=== PATIENT | female | born 1970 | race Caucasian/White ===

== ENCOUNTER 2017-03-16 19:50 | Inpatient (IN) | payer OTHER ==
[~2017-03-16] VITALS: Ht 161.3 cm; Wt 103.2 kg
--- NOTE | ~2017-03-16 | HP ---
Unit #: [id number] #: [id number] Patient: THIAGO LUJAN [id number] [address] [place], [place] [address] [id number] I MR#: [id number] NAME: THIAGO LUJAN ROOM: [facility] Age: 46 Sex: F Admission Date: 03/17/2017 : 1970 Attending Physician: Cristian Dorado M.D. Primary Care Physician: Tyrone Merritt M.D. HISTORY AND PHYSICAL HISTORY OF PRESENT ILLNESS The patient is a 46-year-old white female with a history of osteoarthritis and asthma and became ill about a week ago. She was seen by her primary care physician and started on amoxicillin. She became worse and was switched to doxycycline, but then had persistent nausea and vomiting with minimal amount of diarrhea. She arrived in the emergency room and here she was hypotensive and febrile. She had a left lower lobe infiltrate. CBC was normal. Labs were fairly unremarkable otherwise, except for a slightly low sodium at 134. The patient is admitted for IV antibiotic therapy for failure to respond to outpatient oral antibiotic therapy for left lower lobe pneumonia. PAST MEDICAL HISTORY 1. Seasonal allergies. 2. Asthma. 3. Osteoarthritis. PAST SURGICAL HISTORY times two. SOCIAL HISTORY Works in a factory. Nonsmoker. Rare alcohol use. No street drug use. FAMILY HISTORY Noncontributory. ALLERGIES No known drug allergies. PREADMISSION MEDICATIONS 1. Doxycycline 100 mg b.i.d. 2. Singulair 10 mg daily. 3. Promethazine 25 mg p.o. q.i.d. p.r.n. 4. Flonase nasal spray, 1 spray both nostrils b.i.d. 5. Meloxicam 15 mg p.o. daily. PHYSICAL EXAMINATION GENERAL: She is awake, alert and oriented times three, in no acute distress. VITALS: T-max overnight was 101.3, pulse 94, respiratory rate 18, blood pressure 112/73, O2 saturation on room air 94%. HEENT: Unremarkable. NECK: Supple without jugular venous distension, bruits, adenopathy or thyromegaly. Unit #: [id number] #: [id number] Patient: THIAGO LUJAN CHEST: Left lower lobe rales and rhonchi. Otherwise clear to auscultation. HEART: Regular rate and rhythm without any murmurs, rubs or gallops. ABDOMEN: Soft, nondistended and nontender. Positive bowel sounds. No hepatosplenomegaly. EXTREMITIES: No clubbing, cyanosis or edema. /RECTAL: Deferred. NEUROLOGIC: Grossly intact. DIAGNOSTIC STUDIES IMAGING: Chest x-ray reportedly shows a left lower lobe infiltrate. LABORATORY: CBC normal. Cardiac enzymes normal. CMP normal except for sodium of 134, lipase 29, lactic acid 1.1. Urinalysis 2+ protein. Procalcitonin 0.06. CARDIOVASCULAR: EKG normal sinus rhythm. Otherwise normal. ASSESSMENT 1. Left lower lobe community acquired pneumonia. 2. Nausea and vomiting, likely secondary to doxycycline gastritis. 3. Asthma. PLAN IV antibiotics, IV steroids, respiratory treatments, IV fluids, blood cultures. Urine for legionella and streptococcal antigen. DVT prophylaxis. Slowly advance diet. IV H2 blockers. Further evaluation pending results of the above. Dictated by Cristian Dorado M.D. LUIGI/kailyn TD: 03/17/2017 08:29 JOB #: [id number] HISTORY AND PHYSICAL Page 1 of 1 X Cristian Dorado MD HISTORY AND PHYSICAL
--- NOTE | ~2017-03-16 | CR72 ---
[facility] A Service of [facility] RADIOLOGY TEXT RESULTS PATIENT: THIAGO LUJAN LOCATION: [facility] : 70 UNIT #: [id number] AGE: [address]: Cristian Dorado MD SEX: F ORDER DR: [id number] [facility] [address]. [place], [place] [address] [id number] I MR#: [id number] #: [id number] NAME: THIAGO LUJAN : 1970 SEX: F STUDY DATE/TIME: 03/16/2017 20:49 UNIT: [address] ROOM: [facility] STUDY DESCRIPTION: CR Chest Single View Portable Attending Physician: Cristian Dorado M.D. Ordering Physician: Stefan Morin M.D. Primary Care Physician: Tyrone Merritt M.D. MEDICAL IMAGING REPORT This report is preliminary unless electronic signature is present EXAM Portable chest. HISTORY Vomiting, cough, congestion over the past week. COMPARISON 02/09/2012 TECHNIQUE Single view of the chest was obtained. FINDINGS The heart and mediastinum have normal configuration. The right lung is clear. Bony structures are unremarkable. Consolidative changes are seen at the left lung base. Given the patient's history, this is consistent with pneumonia. No pleural fluid is seen. IMPRESSION Left lower lobe infiltrate. Given the patient's history of cough, this most likely represents pneumonia. The right lung is clear. Dictated by... Tyrone Spence M.D. THIS IS AN ELECTRONICALLY VERIFIED REPORT Tyrone Spence M.D. at 03/19/2017 7:13 AM KAREN/tirso TD: 03/17/2017 23:51 JOB #: [id number] [facility] A Service of [facility] RADIOLOGY TEXT RESULTS PATIENT: THIAGO LUJAN LOCATION: [facility] : 70 UNIT #: [id number] AGE: [address]: Cristian Dorado MD SEX: F ORDER DR: MEDICAL IMAGING REPORT Page 1 of 1 COPY
--- NOTE | ~2017-03-16 | EKG ---
PATIENT: THIAGO LUJAN UNIT #: [id number] Ventricular Rate: 97 BPM Atrial Rate: 97 BPM P-R Interval: 136 ms QRS Duration: 92 ms Q-T Interval: 340 ms QTC Calculation(Bezet): 431 ms P [place]: 69 degrees Calculated R [place]: 83 degrees Calculated T [place]: 34 degrees Diagnosis Line: Normal sinus rhythm Diagnosis Line: Normal ECG Diagnosis Line: No previous ECGs available Diagnosis Line: Confirmed by SAMANTA LEWIS MD ([id number]) on Diagnosis Line: 03/19/2017 4:42:18 PM INTERPRETING MD: COREY
--- NOTE | ~2017-03-16 | DS ---
Unit #: [id number] #: [id number] Patient: THIAGO LUJAN [id number] [address] [place], [place] [address] [id number] I MR#: [id number] NAME: THIAGO LUJAN ROOM: [facility] Age: 46 Sex: F Admission Date: 03/17/2017 : 1970 Discharge Date: 03/20/2017 Attending Physician: Cristian Dorado M.D. Primary Care Physician: Tyrone Merritt M.D. DISCHARGE SUMMARY PRINCIPAL DISCHARGE DIAGNOSES 1. Left lower lobe community-acquired pneumonia. 2. Asthma. 3. Gastritis secondary to doxycycline. 4. Antibiotic-associated diarrhea. 5. Osteoarthritis. 6. Seasonal allergies. PROCEDURES None. CONSULTANTS None. REASON FOR HOSPITALIZATION The patient is a 46-year-old, white female with history of osteoarthritis, asthma, allergic rhinitis who became ill about a week prior to admission. Saw her primary care physician, started on amoxicillin without any relief. Became worse. Switched to doxycycline and then began having persistent nausea, vomiting, and diarrhea. She arrived in the emergency room. There, she was hypotensive; febrile; had a left lower lobe infiltrate; CBC was normal; labs were otherwise unremarkable, except for a slightly low sodium at 134, and the patient was admitted. HOSPITAL COURSE The patient was admitted. She was made NPO. Started on normal saline, IV antibiotics in the form of Rocephin, Zithromax, IV steroids, Dulera, mini-nebs. Rapidly improved. Lipase was normal in the ER. Lactic acid was normal. Urinalysis was normal, except for 2+ protein. Procalcitonin was 0.06. Urine for Legionella and streptococcal antigens were negative. (1) cultures no growth. Patient developed worsening diarrhea here. Stool for C. diff. was ordered, but not performed as of yet. Stool for occult blood was ordered because of some reddish stool and was negative x1, although 3 were ordered. Patient has remained afebrile. She is tolerating p.o. antibiotics and steroids. DISCHARGE MEDICATIONS She will be discharged home on: 1. Z Cornell, use as directed, #1. 2. Medrol Dosepak, use as directed, #1. 3. Omnicef 300 mg 1 p.o. b.i.d. for an additional 6 days. 4. She is to resume her albuterol inhaler 2 puffs q.i.d. p.r.n. at home. 5. Flonase nasal spray 1 spray in both nostrils twice daily. 6. Meloxicam 15 mg p.o. daily. Unit #: [id number] #: [id number] Patient: THIAGO LUJAN 7. Singulair 10 mg p.o. daily. DISCHARGE INSTRUCTIONS 1. She will follow up with Dr. Merritt in one week. 2. She is on a regular diet as tolerates. Dictated by... Cristian Dorado M.D. LUIGI/shaunna TD: 03/21/2017 11:20 JOB #: [id number] DISCHARGE SUMMARY Page 1 of 1 X Cristian Dorado MD X DISCHARGE SUMMARY
[~2017-03-16 19:50] MED LIST: AMOXIL500 MG PO; FLEXERIL10 MG PO; MEDROL4 MG/DOSE- PO; NORCO 5/325 TAB1 TAB PO; VOLTAREN75 MG PO
[2017-03-16 20:55] LABS: BASOPHIL% 0.5 % (0-2.5); HEMATOCRIT 40.9 % (35.0-45.0); HEMOGLOBIN 13.4 gm/dL (12.0-16.0); LYMPHOCYTE# 1.2 X10e3 (1.0-3.5); LYMPHOCYTE% 14.4 % (17.0-45.0); MEAN CORPUSCULAR HEMOGLOBIN 29.2 PG (28-34); MEAN CORPUSCULAR HGB CONC 32.8 g/dL (30-36); MEAN PLATELET VOLUME 7.6 FL (6.5-11.5); MONOCYTE# 0.6 X10e3 (0-1.0); MONOCYTE% 8.1 % (3.0-12.0); NEUTROPHIL# 6.2 X10e3 (1.5-7.1); PLATELET COUNT 272 X10e3 (140-420); RED BLOOD COUNT 4.59 X10e (3.90-5.30); RED CELL DISTRIBUTION WIDTH 13.3 % (11.0-15.5)
[2017-03-16 20:59] LABS: DIFF IND NO
[2017-03-16 21:13] LABS: URINE SOURCE CLEAN CATCH
[2017-03-16 21:16] LABS: URINE APPEARANCE CLEAR; URINE BLOOD NEG (NEG); URINE COLOR DK YELLOW; URINE GLUCOSE NEG (NEG); URINE KETONE 2+ (NEG); URINE LEUKOCYTE ESTERASE NEG (NEG); URINE NITRATE NEG (NEG); URINE PH 5.5 (5-8); URINE PROTEIN 2+ (NEG); URINE SPECIFIC GRAVITY 1.036 (1.003-1.035)
[2017-03-16 21:18] LABS: URINE BACTERIA AUWI NEG (NEGATIVE); URINE SQUAMOUS EPITHELIAL CELL FEW /[HPF]
[2017-03-16 21:19] LABS: POC - CKMB <1.0 ng/mL (0.0-7.9); POC - TROPONIN <0.05 ng/mL (<=0.05)
[2017-03-16 21:19] LABS: ALBUMIN SERUM 3.8 g/dL (3.5-5.0); BILIRUBIN, DIRECT 0.1 mg/dL (0.0-0.2); BILIRUBIN,INDIRECT 0.5 mg/dL (0.0-0.9); BILIRUBIN,TOTAL 0.6 mg/dL (0.2-2.0); BUN/CREATININE RATIO 15.55; CALCIUM SERUM 8.4 mg/dL (8.4-10.2); CREATININE SERUM 0.9 mg/dL (0.6-1.4); GLOM FILT RATE Estimated 76.7 mL/min (>60); POTASSIUM 3.7 mmol/L (3.5-5.1); PROTEIN TOTAL SERUM 8.2 g/dL (6.0-8.3)
[2017-03-16 21:41] LABS: URINE BILIRUBIN NEG (NEG)
[2017-03-16 21:42] LABS: CULTURE INDICATED? NO; U HYALINE CASTS AUWI 0-2 /[LPF]; URBCS1 AUWI NEG /[HPF] (0-2)
[2017-03-17] MEDS ORDERED: MELOXICAM15 MG PO (01:34)
[2017-03-17] MEDS ORDERED: SINGULAIR PO (01:34)
[2017-03-17] MEDS ORDERED: FLONASE ALLERG9.9 ML (01:35)
[2017-03-17 08:30] LABS: LEGIONELLA AG URINE NEG (NEG)
[2017-03-18 06:11] LABS: HEMATOCRIT 35.4 % (35.0-45.0); HEMOGLOBIN 12.1 gm/dL (12.0-16.0); MEAN CELL VOLUME 88.1 FL (83-96); MEAN CORPUSCULAR HEMOGLOBIN 30.1 PG (28-34); MEAN CORPUSCULAR HGB CONC 34.1 g/dL (30-36); MEAN PLATELET VOLUME 7.7 FL (6.5-11.5); RED BLOOD COUNT 4.02 X10e (3.90-5.30); RED CELL DISTRIBUTION WIDTH 13.1 % (11.0-15.5); WHITE BLOOD COUNT 9.2 X10e3 (4.0-10.5)
[2017-03-18 06:27] LABS: CREATININE SERUM 0.7 mg/dL (0.6-1.4); GLOM FILT RATE Estimated 103.9 mL/min (>60); MAGNESIUM 2.1 mg/dL (1.6-3.0); POTASSIUM 4.2 mmol/L (3.5-5.1)
[2017-03-18 09:05] LABS: BASOPHIL% 0.2 % (0-2.5); EOSINOPHIL% 0.1 % (0.0-7.0); LYMPHOCYTE% 10.8 % (17.0-45.0); MONOCYTE# 0.6 X10e3 (0-1.0); MONOCYTE% 6.4 % (3.0-12.0); NEUTROPHIL# 7.7 X10e3 (1.5-7.1); NEUTROPHIL% 82.5 % (40-75); PLATELET COUNT 221 X10e3 (140-420)
[2017-03-18 09:07] LABS: HEMATOCRIT 35.4 % (35.0-45.0); HEMOGLOBIN 12.1 gm/dL (12.0-16.0); MEAN CELL VOLUME 88.1 FL (83-96); MEAN CORPUSCULAR HEMOGLOBIN 30.1 PG (28-34); MEAN CORPUSCULAR HGB CONC 34.1 g/dL (30-36); MEAN PLATELET VOLUME 7.7 FL (6.5-11.5); RED BLOOD COUNT 4.02 X10e (3.90-5.30); RED CELL DISTRIBUTION WIDTH 13.1 % (11.0-15.5); WHITE BLOOD COUNT 9.2 X10e3 (4.0-10.5)
[2017-03-18 09:10] LABS: DIFF IND NO
[2017-03-20] MEDS ORDERED: ALBUTEROL17 GM INH (10:28)
[2017-03-20] MEDS ORDERED: MEDROL DOSEPAK4 MG PO (10:29)
[2017-03-20] MEDS ORDERED: ZITHROMAX500 MG PO (10:30)
[2017-03-20] MEDS ORDERED: OMNICEF300 MG PO (10:30)
== END 2017-03-20 13:00 | disposition home or self-care (01) | DRG 194 ==
LOC: CED 19:50 → CEDOF 03-17 00:08 → CED 03-17 00:12 → CEDOF 03-17 00:12 → C3A PCU 03-17 01:18 → CEDOF 03-17 01:18 → C3A PCU 03-17 01:18
PROVIDERS: Emergency Medicine; Internal Medicine
DX: J18.9 Pneumonia, unspecified organism (principal); K52.1 Toxic gastroenteritis and colitis; J45.909 Unspecified asthma, uncomplicated; K29.60 Other gastritis without bleeding; T36.4X5A Adverse effect of tetracyclines, initial encounter; Y92.9 Unspecified place or not applicable; M19.90 Unspecified osteoarthritis, unspecified site
CPT/HCPCS: 36415; 71010; 80048; 80076; 81003; 82274; 82308; 82553; 83605; 83690; 83735; 84484; 85025; 85027; 87040; 87449; 87899; 93005; 94640; 94664; 94760; 96361; 96365; 96367; 96375; 99284; J0456; J0696; J1650; J2405; J2930